=== PATIENT | female | born 1945 | race Caucasian/White ===

== ENCOUNTER 2017-06-25 10:39 | Outpatient (CLI) | payer MEDICARE, BC | END 2017-06-25 10:40 | disposition home or self-care (01) | LOC: BICMAMMO 10:39 | PROVIDERS: ATTEND Internal Medicine | DX: Z12.31 Encounter for screening mammogram for malignant neoplasm of breast (principal); Z85.3 Personal history of malignant neoplasm of breast | CPT/HCPCS: 77063; 77067 ==

== ENCOUNTER 2018-08-30 09:47 | Outpatient (CLI) | payer MEDICARE, BC ==
--- NOTE | 2018-08-30 10:31 | MMO ---
Bilateral MAMMO Bilat Screen DDI+VIRGEN. CLINICAL HISTORY: Patient is 72 years old and is seen for screening. The patient has the following family history of breast cancer: cousin gender unknown. The patient has a history of malignant (generic) in the left breast in 2008. The patient has a history of left Lumpectomy in 2009 - malignant. VIEWS: The views performed were: bilateral craniocaudal with tomosynthesis and bilateral mediolateral oblique with tomosynthesis. FILMS COMPARED: The present examination has been compared to prior imaging studies performed at [facility] on 02/03/2015, 02/21/2016 and 06/25/2017, and at [facility] on 03/16/2010. MAMMOGRAM FINDINGS: There are scattered fibroglandular densities. Finding 1: There is an equal density mass measuring 6 millimeters with indistinct margins seen in the middle inner region of the right breast. Finding 2: There are stable post operative changes seen in the left breast. IMPRESSION: FINDING 1: MASS IN THE RIGHT BREAST REQUIRES ADDITIONAL EVALUATION. RECOMMEND DIAGNOSTIC MAMMOGRAM. ULTRASOUND MAY ALSO PROVE USEFUL AT RECALL. THE RESULTS OF THIS EXAM WERE SENT TO THE PATIENT. ACR BI-RADS Category 0 - Incomplete: Need additional imaging evaluation. [facility] will notify the patient of the need for additional imaging services. MAMMOGRAPHY NOTE: 1. A negative mammogram report should not delay a biopsy if a dominant of clinically suspicious mass is present. 2. Approximately 10% to 15% of breast cancers are not detected by mammography. 3. Adenosis and dense breasts may obscure an underlying neoplasm.
== END 2018-08-30 09:48 | disposition home or self-care (01) ==
LOC: BICMAMMO 09:47
PROVIDERS: ATTEND Internal Medicine
DX: Z12.31 Encounter for screening mammogram for malignant neoplasm of breast (principal); Z80.3 Family history of malignant neoplasm of breast; Z85.3 Personal history of malignant neoplasm of breast
CPT/HCPCS: 77063; 77067

== ENCOUNTER 2018-09-04 09:29 | Outpatient (CLI) | payer MEDICARE, BC ==
--- NOTE | 2018-09-04 10:43 | MMO ---
Right Breast MAMMO Unilat Diag DDI RT+VIGREN. CLINICAL HISTORY: Patient is 72 years old and is seen for additional evaluation requested from prior study. The patient has the following family history of breast cancer: cousin gender unknown. The patient has a history of malignant (generic) in the left breast in 2008. The patient has a history of left Lumpectomy in 2008 - malignant. VIEWS: The views performed were: right craniocaudal spot compression; right mediolateral oblique spot compression; and right mediolateral. FILMS COMPARED: The present examination has been compared to prior imaging studies performed at [facility] on 02/03/2015, 02/21/2016, 06/25/2017, 08/30/2018 and 09/04/2018, and at [facility] on 03/16/2010. MAMMOGRAM FINDINGS: There are scattered fibroglandular densities. There is a mass measuring 6 millimeters seen in the upper-inner region of the right breast. IMPRESSION: MASS IN THE RIGHT BREAST IS SUSPICIOUS. BIOPSY IS RECOMMENDED. THE RESULTS OF THIS EXAM WERE SENT TO THE PATIENT. ACR BI-RADS Category 4 - Suspicious abnormality - biopsy should be considered MAMMOGRAPHY NOTE: 1. A negative mammogram report should not delay a biopsy if a dominant of clinically suspicious mass is present. 2. Approximately 10% to 15% of breast cancers are not detected by mammography. 3. Adenosis and dense breasts may obscure an underlying neoplasm.
--- NOTE | 2018-09-04 11:42 | ULT ---
DIAGNOSTIC RIGHT BREAST ULTRASOUND: Date: 09/04/18 CLINICAL HISTORY: Mammographic mass of upper inner right breast. FINDINGS: Real-time sonography is performed which reveals a small mass, of decreased echogenicity with a slight ly spiculated border, measuring a diameter of 5 mm. Finding is suspicious for a small mass that requi res additional imaging evaluation with ultrasound guided biopsy and does correspond to the mammograph ic mass. IMPRESSION: BIRADS Category 4 - Suspicious abnormality. Further evaluation with ultrasound-guided biopsy is recom mended. These findings and recommendations were discussed with the patient. The patient is being arranged for subsequent biopsy under ultrasound guidance. POS: OFF
--- NOTE | 2018-09-04 14:18 | MMO ---
Right Breast MAMMO Unilat Diag DDI RT. CLINICAL HISTORY: Patient is 72 years old and is seen for breast biopsy. The patient has the following family history of breast cancer: cousin gender unknown. The patient has a history of malignant (generic) in the left breast in 2008. The patient has a history of left Lumpectomy in 2008 - malignant. VIEWS: The views performed were: right craniocaudal and right mediolateral. FILMS COMPARED: The present examination has been compared to prior imaging studies performed at [facility] on 02/03/2015, 02/21/2016, 06/25/2017, 08/30/2018 and 09/04/2018, and at [facility] on 03/16/2010. MAMMOGRAM FINDINGS: There are scattered fibroglandular densities. There is a biopsy clip seen in the middle inner region of the right breast. IMPRESSION: BIOPSY CLIP IN THE RIGHT BREAST IS CONFIRMED UTILIZING POST PROCEDURE MAMMOGRAM. THE RESULTS OF THIS EXAM WERE SENT TO THE PATIENT. MAMMOGRAPHY NOTE: 1. A negative mammogram report should not delay a biopsy if a dominant of clinically suspicious mass is present. 2. Approximately 10% to 15% of breast cancers are not detected by mammography. 3. Adenosis and dense breasts may obscure an underlying neoplasm.
--- NOTE | 2018-09-04 14:36 | ULT ---
ULTRASOUND-GUIDED RIGHT BREAST BIOPSY ULTRASOUND-GUIDED BIOPSY MARKING CLIP PLACEMENT RIGHT BREAST: Date: 09/04/18 INDICATION: Mass of the upper inner right breast. PROCEDURE: Informed consent was obtained. The patient was escorted to the procedural suite and placed in the sup ine position. The right breast was prepped and draped in the standard sterile fashion. Topical anesth esia with buffered 1% lidocaine was performed. A small skin incision was made, through which a 13 gau ge trocar was advanced to the leading edge of the mass. The inner stylette of the trocar was removed and was exchanged for a 14 gauge biopsy needle. Subsequently, five core specimens of the mass were ac quired and placed into a sealed formalin container which was sent to pathology for further analysis. The trocar and biopsy needle were removed. Subsequently, biopsy marking clip was advanced and deploye d within the site of biopsy, at the level of the hypoechoic mass. Imaging was stored for documentatio n. The patient tolerated the procedure well and without evidence of complication. The patient was tra nsferred to mammography to undergo postprocedural clip placement mammographic views. IMPRESSION: 1. Technically successful ultrasound-guided right breast biopsy. 2. Technically successful ultrasound-guided clip placement of right breast. 3. Pathology results are pending. The patient will be notified when they are received. POS: OFF
== END 2018-09-04 09:30 | disposition home or self-care (01) ==
LOC: BICMAMMO 09:29
PROVIDERS: ATTEND Internal Medicine
DX: C50.211 Malignant neoplasm of upper-inner quadrant of right female breast (principal); Z80.3 Family history of malignant neoplasm of breast; Z85.3 Personal history of malignant neoplasm of breast
CPT/HCPCS: 19083; 76642; 77065; 88305; 88341; 88342; G0279

== ENCOUNTER 2018-09-17 10:25 | Outpatient (CLI) | payer MEDICARE, BC ==
[~2018-09-17 10:25] MED LIST: Iopamidol 370 76% 100 ML VIAL ONE
--- NOTE | 2018-09-19 15:46 | CT ---
CT of the chest and abdomen with IV contrast INDICATION: History of breast cancer COMPARISON: None FINDINGS: CHEST: LUNGS: No suspicious pulmonary nodule is evident. There is an area of linear hazy density seen adjace nt to the right major fissure in the right lower lobe on image 24 series 3 suspicious for small scar or subsegmental atelectasis. There is pleural and subpleural parenchymal thickening involving th e anterior aspect of the left upper lobe suspicious for scarring, possibly related to prior radiation therapy. Mediastinum: No pathologically enlarged lymph nodes are evident. There are calcified lymph nodes with in the left hilar region. There are mild vascular calcifications involving the thoracic aorta. There are surgical clips within the left axilla. ABDOMEN: Liver: Normal. Adrenal glands: Normal. Pancreas: Normal. Spleen: Normal. Kidneys: Within normal limits. There is a small subcentimeter cyst within the left mid kidney. There is a retroaortic left renal vein. Retroperitoneum: There are mild vascular calcifications involving all aorta. No pathologically enlarg ed lymph nodes are evident. Osseous structures: No suspicious osteolytic or osteoblastic lesion is evident. There is postsurgical change involving the lower lumbar spine. There is scattered degenerative and osteoarthritic change present. IMPRESSION: 1. No evidence for metastatic disease within the chest and abdomen. 2. Focal area of scarring versus subsegmental volume loss in the right lower lobe. 3. Postsurgical changes involving the left breast with likely post therapy changes involving the uppe r lobe of the left lung. 4. Suspected small left renal cyst Transcribed Date/Time: 09/19/2018 3:46 PM
== END 2018-09-17 10:26 | disposition home or self-care (01) ==
LOC: SCSCT 10:25
PROVIDERS: ATTEND Internal Medicine Hematology & Oncology
DX: C50.211 Malignant neoplasm of upper-inner quadrant of right female breast (principal); Z98.890 Other specified postprocedural states
CPT/HCPCS: 71260; 74160; 82565; Q9967

== ENCOUNTER 2018-09-27 11:25 | Outpatient (CLI) | payer MEDICARE, BC ==
[2018-09-27 14:32] LABS: #Eosinphils 0.2 thou/uL (0.0-0.7); #Lymphocytes 2.7 thou/uL (1.20-3.40); #Monocytes 0.4 thou/uL (0.11-0.59); #Neutrophils 2.8 thou/uL (1.40-6.50); %Basophils 0.6 % (0.0-1.0); %Eosinophils 2.8 % (0.0-10.0); %Lymphocytes 44.6 % (21.0-51.0); %Monocytes 6.6 % (0.0-10.0); %Neutrophils 45.3 % (42.0-75.0); Hemoglobin 12.9 g/dL (12.0-16.0); Mean Corpuscular HGB CONC 33.4 g/dL (32.0-36.0); Mean Corpuscular Hemoglobin 31.3 pg (27.0-31.0); Mean Corpuscular Volume 93.7 fL (78.0-98.0); Mean Platelet Volume 6.8 fL (7.4-10.4); Platelet Count 207 thou/uL (130-400); RBC Distribution Width 11.7 % (11.5-14.5); Red Blood Cell (RBC) Count 4.12 mill/uL (4.20-5.40); White Blood Cell (WBC) Count 6.1 thou/uL (4.8-10.8)
[2018-09-27 14:48] LABS: Anion Gap 11 mmol/L (10-20); BUN (Urea Nitrogen) 13 mg/dL (9.8-20.1); Calc. Creatinine Clearance 0 mL/min (70-130); Calcium 9.1 mg/dL (7.8-10.44); Carbon Dioxide 30 mmol/L (23-31); Chloride 102 mmol/L (98-107); Estimated GFR-MDRD 56; Glucose 106 mg/dL (83-110); Potassium 3.8 mmol/L (3.5-5.1); Sodium 139 mmol/L (136-145)
== END 2018-09-27 11:26 | disposition home or self-care (01) ==
LOC: LABBT 11:25
PROVIDERS: ATTEND Specialist
DX: Z01.818 Encounter for other preprocedural examination (principal); C50.211 Malignant neoplasm of upper-inner quadrant of right female breast
CPT/HCPCS: 80048; 85025; 93005; 93010

== ENCOUNTER 2018-10-03 07:00 | Day surgery (SDC) | payer MEDICARE, BC ==
[2018-09-27 13:30] VITALS: BMI 37.3
--- NOTE | 2018-10-03 08:13 | MMO ---
EXAM: MAMMO Brst Loc Dev Mammo Guide PROVIDED CLINICAL HISTORY: Right breast cancer. COMPARISON: Postbiopsy mammograms on 09/04/2018 TECHNIQUE: After informed consent was obtained, the right breast localization clip in the inner upper breast was localized in CC projection. An area was marked and then meticulously prepped and draped in usual fashion. Skin and subcutaneous tissues were infiltrated with buffered 1% lidocaine for local anesthes ia. A 7.5 cm [place] localization needle and wire were then advanced into the right breast. Mediolateral view was obtained demonstrating the needle in the correct position. A CC projection was then performed. The needle was withdrawn, and the localization wire was then deployed. Final image in the CC projection was obtained demonstrating the needle immediately adjacent to the localization c lip. Dry sterile dressing was placed. Patient tolerated the procedure well and without immediate complication. Patient was transported to radiology for right breast lymphoscintigraphy. IMPRESSION: Technically successful needle and wire localization of a biopsy marker clip in the upper inner right breast.
[2018-10-03] MEDS ORDERED: Ketorolac Tromethamine 30 MG/ML VIAL ONE (09:46)
--- NOTE | 2018-10-03 10:24 | NM ---
EXAM: NM Lymphoscintigraphy right breast PROVIDED CLINICAL HISTORY: Right breast cancer COMPARISON: None FINDINGS: Approximately 0.427 mCi technetium 99m filtered sulfur colloid was administered in 4 separate aliquot s subcutaneously and intradermally in a periareolar location right breast. Immediate anterior and lateral images of the breast and upper chest demonstrate focus of increased uptake overlying the righ t axilla likely corresponding to sentinel lymph node. This area was marked, and the patient was transported to the operating room for surgery. IMPRESSION: Focus of increased uptake right axillary region likely corresponding to sentinel lymph node.
[2018-10-03] MEDS ORDERED: Fentanyl 100 MCG/2 ML VIAL ONE (11:05)
[2018-10-03] MEDS ORDERED: Bupivacaine/Epinephrine 0.25% 30 ML VIAL ONE ×2 (11:09→12:32)
[2018-10-03] MEDS ORDERED: Isosulfan Blue 50 MG/5 ML VIAL ONE (11:09)
--- NOTE | 2018-10-03 13:23 | MMO ---
EXAM: MAMMO Surgial Specimen PROVIDED CLINICAL HISTORY: Right breast cancer. Patient is post needle localization and lumpectomy. COMPARISON: Needle wire localization images also obtained on this date FINDINGS/IMPRESSION: A biopsy marker clip and localization wire are seen in the single provided specimen. windows server support technician Mag thompson, notified Dr. Roberto in the operating room that the localization clip was present in the biopsy specimen.
[2018-10-03] MEDS ORDERED: PROPOFOL 200 MG/20 ML VIAL ONE (16:53)
[2018-10-03] MEDS ORDERED: ePHEDrine 50 MG/ML VIAL ONE (16:53)
[2018-10-03] MEDS ORDERED: Ondansetron PF 4 MG/2 ML Vial ONE (16:53)
[2018-10-03] MEDS ORDERED: Lidocaine 1% PF 5 ML VIAL ONE (16:53)
[2018-10-03] MEDS ORDERED: PHENYLEPHRINE-NS 100 MCG/ML 10 ML SYRINGE ONE (16:53)
[2018-10-03] MEDS ORDERED: Dexamethasone 20 MG/5 ML VIAL ONE (16:53)
--- NOTE | 2018-10-04 08:18 | OP ---
DATE OF PROCEDURE: 10/03/2018 PREOPERATIVE DIAGNOSIS: Right breast cancer. POSTOPERATIVE DIAGNOSIS: Right breast cancer. PROCEDURES PERFORMED: Needle-localized right breast lumpectomy, right axillary sentinel lymph node mapping, right sentinel lymph node biopsy. ANESTHESIA: General endotracheal. INDICATIONS: The patient is a 72-year-old white female. She has a prior history of left breast cancer. Abnormalities on recent imaging studies revealed evidence of right breast cancer and after discussing all options, she has decided to proceed with breast conservation surgery on the right breast. The area of the malignancy appeared to be less than 1 cm in size. DESCRIPTION OF PROCEDURE: Prior to being taken to the operating room, a needle localization was performed by Radiology. The malignancy was in the upper inner quadrant of her right breast. The needle was placed in a medial to lateral fashion and appeared to be immediately adjacent to the clip. The malignancy was relatively difficult to visualize either with mammography or ultrasound following her biopsy. She also underwent lymphoscintigraphy, which revealed sentinel lymph node within the right axilla. She was taken to the operating room where general endotracheal anesthesia was obtained with the patient in supine position. Right breast and axilla were prepped with ChloraPrep and draped in sterile fashion. 3 mL of Lymphazurin was infiltrated into the right periareolar subdermal tissue and massaged for 5 minutes. Attention was then turned to the right axilla. Local anesthetic was infiltrated using 0.25% Marcaine with epinephrine and a transverse low axillary incision was created. Dissection was carried through skin and subcutaneous tissue into the axilla. Utilizing the Neoprobe, identified a single dominant lymph node. This was obviously blue-stained and was quickly identified, dissected circumferentially, and removed intact. Investing lymphatics were divided between clamps and 3-0 silk ties. I then spent quite a while searching for a second sentinel lymph node. I was able to find this, although it was very deep within the axilla and fairly small. After this was removed intact also, there were no other areas of any increased radioactivity or blue stain. Hemostasis was meticulous. The wound was closed in layers with 3-0 and 4-0 Monocryl. Dermabond was placed externally. Attention was then turned to the breast. A transverse incision was created on the upper breast extending laterally from the needle insertion site. Dissection was carried through the skin and subcutaneous tissue. Dissection was carried down about a centimeter into the breast and at this point, I began raising flaps superiorly, inferiorly, and medially. I then dissected behind and deep to the needle in order to obtain a wide core of tissue around the was extended into the breast. Dissection was carried beyond the tip of the needle, even though the clip was about 3 cm from the tip of the needle. The specimen with the needle within it was removed intact. It was oriented with sutures and submitted to Pathology. Meticulous hemostasis was obtained within the wound. It was closed in layers with 3-0 and 4-0 Monocryl. An additional local anesthetic was instilled in the wound during closure. Dermabond was placed externally. The specimen mammograph revealed that the clip was intact within the specimen. There were no complications. The patient tolerated the procedure well and was taken to the recovery room in stable condition. Job ID: [id number]
== END 2018-10-03 14:35 | disposition home or self-care (01) ==
LOC: SDC 07:00
PROVIDERS: ATTEND Specialist
PROC: 0HBT0ZZ Excision of Right Breast, Open Approach (ICD-10-PCS; principal; 2018-10-03)
PROC: 0HBT0ZX Excision of Right Breast, Open Approach, Diagnostic (ICD-10-PCS; 2018-10-03)
PROC: 07B50ZX Excision of Right Axillary Lymphatic, Open Approach, Diagnostic (ICD-10-PCS; 2018-10-03)
DX: C50.211 Malignant neoplasm of upper-inner quadrant of right female breast (principal); E03.9 Hypothyroidism, unspecified; E78.5 Hyperlipidemia, unspecified; M19.90 Unspecified osteoarthritis, unspecified site; M48.061 Spinal stenosis, lumbar region without neurogenic claudication; M10.9 Gout, unspecified; Z17.0 Estrogen receptor positive status [ER+]; Z85.3 Personal history of malignant neoplasm of breast; Z88.0 Allergy status to penicillin; Z91.030 Bee allergy status; Z79.899 Other long term (current) drug therapy
CPT/HCPCS: 19281; 19301; 38525; 38900; 76098; 78195; 88307; 88342; A9541; Q9968; J0131; J0690; J1100; J1885; J2001; J2405; J2704; J3010; J3490

== ENCOUNTER 2019-01-23 10:14 | Outpatient (CLI) | payer MEDICARE, BC ==
--- NOTE | 2019-01-23 10:57 | BD ---
EXAM: DEXA bone density examination HISTORY: 73-year-old postmenopausal female for screening COMPARISON: 06/23/2015 FINDINGS: Left distal third forearm--bone mineral density 0.735 g/sq cm; T score 0.7 Total left distal forearm--bone mineral density 0.63 g/sq cm; T score 0.8 Right distal third forearm--bone mineral density 0.722 g/sq cm; T score 0.5 Total right distal forearm--bone mineral density 0.642 g/sq cm; T score 1.2 IMPRESSION: Normal bone density. When compared to the prior exam, the bone density in the left forear m is increased [place] 4%.
== END 2019-01-23 10:15 | disposition home or self-care (01) ==
LOC: BICMAMMO 10:14
PROVIDERS: ATTEND Internal Medicine Hematology & Oncology
DX: Z13.820 Encounter for screening for osteoporosis (principal); T38.6X5A Adverse effect of antigonadotrophins, antiestrogens, antiandrogens, not elsewhere classified, initial encounter; C50.919 Malignant neoplasm of unspecified site of unspecified female breast
CPT/HCPCS: 77080

== ENCOUNTER 2019-05-11 19:30 | Outpatient (CLI) | payer MEDICARE, BC | END 2019-05-11 19:31 | disposition home or self-care (01) | LOC: SLEEPLAB 19:30 | PROVIDERS: ATTEND Internal Medicine | DX: G47.33 Obstructive sleep apnea (adult) (pediatric) (principal); G25.81 Restless legs syndrome; G47.00 Insomnia, unspecified | CPT/HCPCS: 95811 ==

== ENCOUNTER 2020-07-15 09:20 | Outpatient (CLI) | payer MEDICARE ==
--- NOTE | 2020-07-15 10:07 | MMO ---
Bilateral MAMMO Bilat Diag DDI+VIRGEN. CLINICAL HISTORY: Patient is 74 years old and is seen for diagnostic exam. The patient has the following family history of breast cancer: cousin gender unknown. 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 The patient has a history of right Lumpectomy in Sep, 2018 - malignant and left Lumpectomy in 2008 - malignant. VIEWS: The views performed were: bilateral craniocaudal with tomosynthesis; bilateral mediolateral oblique with tomosynthesis; and bilateral mediolateral with tomosynthesis. FILMS COMPARED: The present examination has been compared to prior imaging studies performed at [facility] on 08/30/2018 and 09/04/2018. This study has been interpreted with the assistance of computer-aided detection. MAMMOGRAM FINDINGS: There are scattered fibroglandular densities. Finding 1: There are new post operative changes seen in the right breast. Finding 2: There are stable post operative changes seen in the left breast. Finding 3: There are stable benign appearing calcifications seen in the left breast. There are no suspicious masses, suspicious calcifications, or suspicious areas of architectural distortion. IMPRESSION: THERE IS NO MAMMOGRAPHIC EVIDENCE OF MALIGNANCY. A ROUTINE FOLLOW-UP MAMMOGRAM IN 1 YEAR IS RECOMMENDED. THE RESULTS OF THIS EXAM WERE SENT TO THE PATIENT. ACR BI-RADS Category 2 - Benign finding MAMMOGRAPHY NOTE: 1. A negative mammogram report should not delay a biopsy if a dominant of clinically suspicious mass is present. 2. Approximately 10% to 15% of breast cancers are not detected by mammography. 3. Adenosis and dense breasts may obscure an underlying neoplasm. Reported by: JAKOB RIVERA MD Electonically Signed: [id number]
--- NOTE | 2020-07-15 10:19 | BD ---
EXAM: DEXA bone density examination HISTORY: 74-year-old postmenopausal female for screening COMPARISON: 01/23/2019 FINDINGS: Right distal third forearm--bone mineral density0.742; T score 0.8 Total distal right forearm--bone mineral density 0.617; T score 0.7 Left distal third forearm--bone mineral density0.705; T score 0.2 Total distal left forearm--bone mineral density 0.615; T score 0.7 IMPRESSION: Normal bone density. When compared to the prior examination, the bone density in the left forearm has decreased approximately 4%.
== END 2020-07-15 09:21 | disposition home or self-care (01) ==
LOC: BICMAMMO 09:20
PROVIDERS: ATTEND Internal Medicine
DX: Z08 Encounter for follow-up examination after completed treatment for malignant neoplasm (principal); Z85.3 Personal history of malignant neoplasm of breast; Z13.820 Encounter for screening for osteoporosis; Z78.0 Asymptomatic menopausal state
CPT/HCPCS: 77066; 77080; G0279

== ENCOUNTER 2022-09-01 09:16 | Outpatient (CLI) | payer MEDICARE | END 2022-09-01 09:17 | disposition home or self-care (01) | LOC: BICMAMMO 09:16 | PROVIDERS: ATTEND Internal Medicine Hematology & Oncology | DX: Z08 Encounter for follow-up examination after completed treatment for malignant neoplasm (principal); C50.211 Malignant neoplasm of upper-inner quadrant of right female breast; Z85.3 Personal history of malignant neoplasm of breast | CPT/HCPCS: 77066; G0279 ==

== ENCOUNTER 2023-10-16 08:42 | Outpatient (CLI) | payer MEDICARE | END 2023-10-16 08:43 | disposition home or self-care (01) | LOC: BICMAMMO 08:42 | PROVIDERS: ATTEND Family Medicine | DX: Z08 Encounter for follow-up examination after completed treatment for malignant neoplasm (principal); Z85.3 Personal history of malignant neoplasm of breast | CPT/HCPCS: 77066; G0279 ==

== ENCOUNTER 2025-04-06 12:07 | Outpatient (CLI) | payer MEDICARE | END 2025-04-06 12:08 | disposition home or self-care (01) | LOC: SCSRAD 12:07 | DX: R60.0 Localized edema (principal) | CPT/HCPCS: 36415; 71046; 80053; 83880; 85025 ==